=== PATIENT | female | born 1985 | race African-American/Black ===

== ENCOUNTER 2018-10-16 14:16 | Emergency (ER) | payer OTHER ==
[~2018-10-16] VITALS: Ht 162.6 cm; Wt 136.1 kg
[2018-10-16 14:48] VITALS: BP 123/75
[2018-10-16] MEDS ORDERED: Bacitracin Oint UD TOPIC ONE (15:15)
[2018-10-16] MEDS ORDERED: Tetanus/Diptheria/Pertussis Vaccine 0.5ml Syr IM ONE (15:15)
[2018-10-16] MEDS ORDERED: Ketorolac 30mg Inj IV ONE (15:15)
[2018-10-16] MEDS ORDERED: Tylenol #3 tab (300mg/30mg) ORAL ONE (15:15)
--- NOTE | 2018-10-16 15:53 | Diagnostic Imaging Report ---
Indication: Right ankle pain Technique: 3 views of the right ankle Comparison: none Findings: There is medial and lateral soft tissue swelling. No acute fractures. No dislocations. The joint spaces are preserved. Impression: Negative
--- NOTE | 2018-10-16 15:56 | Emergency Room Report ---
History of Present Illness General Chief Complaint: Pain Source: Patient Present Illness HPI 32-year-old female presents to the emergency department complaining of localized 8 out of 10 in severity pain, swelling and bruising to the lateral and medial portions of the right ankle since last night. Patient reports she was walking last night down an alley way and twisted her ankle. Patient also reports that she landed on her left knee as well as and sustained skin abrasions. Patient does not know when her last tetanus vaccination was. Patient denies midline neck or back pain she also denies loss of consciousness or hitting her head. Patient states pain is exacerbated upon attempts to bear weight or walk. Denies numbness tingling or loss of sensation or gross motor movements of the extremities, incontinence of bowel or bladder. Denies CP, Palpitations, LOC, AMS, dizziness, Changes in Vision, weakness or a sudden severe headache. Allergies: Coded Allergies: No Known Allergies (Unverified , 10/16/18) Patient History Past Medical History: see triage record Past Surgical History: none Pertinent Family History: none Last Menstrual Period: currently Now: No Reviewed Nursing Documentation: PMH: Agreed; PSxH: Agreed Nursing Documentation-PMH Past Medical History: No History, Except For Review of Systems All Other Systems: negative except mentioned in HPI Physical Exam Vital Signs Date Time Temp Pulse Resp B/P (MAP) Pulse Ox O2 Delivery O2 Flow Rate FiO2 10/16/18 14:41 98.1 108 16 123/75 97 Room Air Sp02 EP Interpretation: reviewed, normal General Appearance: alert, GCS 15, non-toxic, moderate distress Head: normocephalic, atraumatic Eyes: bilateral eye normal inspection, bilateral eye PERRL ENT: hearing grossly normal, normal voice Neck: full range of motion Respiratory: lungs clear, normal breath sounds, speaking full sentences Cardiovascular #1: regular rate, rhythm, no edema, normal capillary refill Cardiovascular #2: 2+ dorsalis pedis (R), 2+ dorsalis pedis (L) Musculoskeletal: back normal, normal range of motion, tender - TTP to the Lateral and medial aspects of the right ankle. swelling noted, unable to bear weight Neurologic: alert, oriented x3, responsive, motor strength/tone normal, sensory intact, speech normal, grossly normal Psychiatric: judgement/insight normal Skin: normal color, no rash, warm/dry, well hydrated, other - bruising to the lateral aspect of the right ankle. , abrasions - Left anterior knee Medical Decision Making PA Attestation Dr. Bautista is my supervising Physician whom patient management has been discussed with. Diagnostic Impression: Primary Impression: Right ankle sprain Qualified Codes: S93.401A - Sprain of unspecified ligament of right ankle, initial encounter Additional Impression: Abrasion ER Course 32-year-old female presents to the emergency department complaining of localized 8 out of 10 in severity pain, swelling and bruising to the lateral and medial portions of the right ankle since last night. Patient reports she was walking last night down an alley way and twisted her ankle. Patient also reports that she landed on her left knee as well as and sustained skin abrasions. Patient does not know when her last tetanus vaccination was. Patient denies midline neck or back pain she also denies loss of consciousness or hitting her head. Patient states pain is exacerbated upon attempts to bear weight or walk. Denies numbness tingling or loss of sensation or gross motor movements of the extremities, incontinence of bowel or bladder. Denies CP, Palpitations, LOC, AMS, dizziness, Changes in Vision, weakness or a sudden severe headache. Ddx considered but are not limited to Fracture, dislocation, contusion, Sprain/ Strain/Spasm Vital signs: are WNL, pt. is afebrile H&PE are most consistent with musculoskeletal injury will perform imaging to r/ o fractures/dislocations. ORDERS: - X-ray Right ankle 3 views: No fractures ED INTERVENTIONS: - Tdap -Toradol IM -T#3 PO Short leg posterior Splint applied to the right ankle by scale technician. Pt. remains neurovascularly intact. -Patient is provided with crutches and instructed on their use DISCHARGE: At this time pt. is stable for d/c to home. Will provide printed patient care instructions, and any necessary prescriptions. Care plan and follow up instructions have been discussed with the patient prior to discharge. Other X-Ray Diagnostic Results Other X-Ray Diagnostic Results : X-Ray ordered: Right ankle # of Views/Limited Vs Complete: 3 View Indication: Pain EP Interpretation: Yes PA Xray: Interpretation reviewed, by supervising MD, and agrees with findings. Interpretation: no dislocation, no fractures, other - Soft Tissue swelling noted. Impression: Other - abnormal- ST swelling. Last Vital Signs Date Time Temp Pulse Resp B/P (MAP) Pulse Ox O2 Delivery O2 Flow Rate FiO2 10/16/18 14:48 98.1 69 16 123/75 97 Room Air Disposition: HOME, SELF-CARE Condition: Stable Scripts Bacitracin/Polymyxin B Sulfate (BACITRACIN-POLYMYXIN OINTMENT) 28.35 Gm Oint...g. 1 APPLIC TP BID, #28.3 GM Prov: Steph España 10/16/18 Acetaminophen With Codeine (T#3) (TYLENOL #3 TAB*) Y Tab 1 TAB ORAL Q6HR PRN for For Pain, #12 TAB Prov: Steph España 10/16/18 Ibuprofen* (MOTRIN*) 600 Mg Tablet 600 MG ORAL THREE TIMES A DAY, #20 TAB 0 Refills Prov: Steph España 10/16/18 Referrals: AMANDA GORDILLO [facility],REF[facility]RI (PCP) Patient Instructions: Ankle Sprain, [id number] Additional Instructions: Take medications as directed. Follow up with an [facility]ER in 3-5 days, even if your symptoms have resolved. If symptoms persist MRI may be required at the discretion of your PCP or Ortho Specialist. --Please review list of primary care clinics, if you do not already have a primary care provider who can give you an Orthopedic Referral. Return sooner to ED if new symptoms occur, or current symptoms become worse. Do not drink alcohol, drive, or operate heavy machinery while taking Colora as this may cause drowsiness. - Please note that this Emergency Department Report was dictated using [employer]watch[employer] transcriptionist technology software, occasionally this can lead to erroneous entry secondary to interpretation by the dictation equipment. Steph España Oct 16, 2018 15:56
[2018-10-16] MEDS ORDERED: BACITRACIN-P28.35 GM TP (16:18)
[2018-10-16] MEDS ORDERED: IBUPROFEN600 MG ORAL (16:18)
[2018-10-16] MEDS ORDERED: ACETAMINOPHEN-1 EAC1 ORAL (16:18)
[2018-10-16 16:49] VITALS: BP 123/75
--- NOTE | 2018-10-16 16:49 | NUR ---
ED Nurse Note:pain meds were given to pt. pt. was examed, treated and cleared for D/C home by ER provider. PT. received D/C instructions with prescriptions, verbalized understanding and left ER with steady gait and all personal belongings , ID bend removed.
== END 2018-10-16 16:52 | disposition home or self-care (01) ==
LOC: EMR 14:48
DX: S93.401A Sprain of unspecified ligament of right ankle, initial encounter (principal); S80.212A Abrasion, left knee, initial encounter; X50.1XXA Overexertion from prolonged static or awkward postures, initial encounter; Y92.009 Unspecified place in unspecified non-institutional (private) residence as the place of occurrence of the external cause; Z23 Encounter for immunization
CPT/HCPCS: 73610; 90471; 90715; 96374; 99284; J1885